=== PATIENT | female | born 2000 | race Caucasian/White ===

== ENCOUNTER 2023-01-19 20:09 | Observation (INO) ==
[2023-01-19 20:46] LABS: Basophils # (auto) 0.08 K/uL (0.00-0.20); Basophils % (auto) 0.9 %; Eosinophils # (auto) 0.31 K/uL (0.00-0.50); Eosinophils % (auto) 3.5 %; Hematocrit (blood only) 36.2 % (37.0-47.0); Hemoglobin 12.2 g/dl (12.0-16.0); Immature Granulocytes # (auto) 0.02 K/uL (0.01-0.20); Immature Granulocytes % (auto) 0.2 %; Lymphocytes # (auto) 2.84 K/uL (1.20-3.40); Lymphocytes % (auto) 32.1 %; Mean Corpuscular Hemoglobin 30.4 pg (25.0-34.0); Mean Corpuscular Hgb Conc 33.7 g/dL (32.0-36.0); Mean Corpuscular Volume 90.3 fL (80.0-100.0); Mean Platelet Volume 9.7 fL (9.4-12.4); Monocytes % (auto) 12.4 %; Neutrophils # (auto) 4.49 K/uL (1.40-6.50); Neutrophils % (auto) 50.9 %; Platelet Count 335 K/uL (130-400); RDW Coefficient of Variation 12.5 % (11.5-14.5); RDW Standard Deviation 41.4 fL (36.4-46.3); Red Blood Count 4.01 M/uL (4.20-5.40); White Blood Count 8.84 K/ul (4.8-10.8)
[2023-01-19 21:03] LABS: Albumin Globulin Ratio 1.7 (0.9-2); Albumin Level 4.3 gm/dl (3.4-5.0); BUN Creatinine Ratio 14.5 (10-20); Bilirubin,Total 0.2 mg/dl (0.2-1.0); Calcium 9.2 mg/dl (8.6-10.3); Creatinine Clr Calc Pharmacy 104.9 ml/min; Est GFR (African American) 142.2 ml/min; Est GFR (Non-African American) 122.7 ml/min; Globulin 2.5 gm/dl (2.5-4.0); Potassium 3.9 mmol/L (3.5-5.1); Total Protein 6.8 gm/dl (6.0-8.3)
[2023-01-19] MEDS ORDERED: AMPICILLIN/SULBACTAM SOD 3,000 MG in SODIUM CHLOR 0.9% MINI-B 100 ML IV STA (23:45)
[2023-01-19] MEDS ORDERED: OPTIRAY 320 500ml IV ONE (23:54)
--- NOTE | 2023-01-20 01:57 | CT Scan Report ---
Exam(s): CT FACIAL With Contrast IV Amt: 84 ML OPTIRAY 320 EXAM: CT Head and Maxillofacial With Intravenous Contrast CLINICAL HISTORY: Reason for exam: left facial swelling. TECHNIQUE: Axial computed tomography images of the head/brain and face with intravenous contrast. CTDI is 7.19 mGy and DLP is 149.76 mGy-cm. Automated exposure control was utilized for the study. A dose lowering technique was utilized adhering to the principles of ALARA. CONTRAST: Patient received 84 ML OPTIRAY 320 of IV contrast COMPARISON: No relevant prior studies available. FINDINGS: Brain: Unremarkable. No hemorrhage. No edema. Normal enhancement. Ventricles: Unremarkable. No ventriculomegaly. Bones/joints: Dental caries with. Periapical lucencies about tooth #19, 23 and 24 concerning for periapical abscesses with periosteal abscess about the lateral 16.1 x 12.9 x 7.4 mm. No acute fracture. Incomplete fusion of the posterior ring of C1. Soft tissues: Prominent cervical lymph nodes. Right thyroid nodule. Sinuses: Chronic obstructive left sphenoid sinusitis. No acute sinusitis. Mastoid air cells: Unremarkable as visualized. No mastoid effusion. Orbits: Unremarkable as visualized. IMPRESSION: Dental caries with periapical lucencies about tooth #19, 23 and 24 concerning for periapical abscesses with a periosteal abscess about the lateral left mandible measuring 16.1 x 12.9 x 7.4 mm. Prominent cervical lymph nodes. Recommend dental consult. Communications: Verify Receipt Electronically signed by: Arabella Hinojosa MD 01/20/23 01:56 AM
--- NOTE | 2023-01-20 03:21 | History & Physical Report ---
Date of Service January 20, 2023 Assessment & Plan (1) Periapical abscess: Plan: 22yo female presenting with pain and swelling left mandible. She has been on Clindamycin for a dental abscess which improved initially but has since worsened. She is afebrile and non-toxic. She has an appointment with a dentist in 5-6 weeks -Observation to medical -Continue antibiotics - Unasyn 3gm IV q 6 -Tylenol as needed -Zofran as needed -LR at 80mL/hr x 2L -Will keep NPO for possible OR in AM -OMFS consultation appreciated History of Present Illness Chief Complaint: left mandibular abscess Primary Care Provider: Suzy Rubio is a 22yo female with no significant past medical or surgical history presenting to [facility] with persistent pain and swelling of the left mandibular jaw. Patient developed a tooth abscess one week ago. She was seen in Urgent Care and was prescribed Clindamycin which she has been taking without difficulty. She reports that her symptoms initially improved but over the last two days she has had increased pain and swelling. She denies fever. No SOB or stridor. No pain or difficulty with swallowing. She is able to open her mouth without difficulty. Otherwise, no chest pain, palpitations, cough, SOB, nausea, vomiting, diarrhea. No additional complaints at this time. In the ER she is afebrile, HD stable, NAD ER Course: Unasyn Allergies Allergy/AdvReac Type Severity Reaction Status Date / Time No Known Allergies Allergy Verified 01/20/23 00:15 Home Medications Medication Instructions Recorded Confirmed Type clindamycin HCl 150 mg capsule 150 mg PO QID 01/20/23 01/20/23 History Past Med/Surg History Medical History (Updated 01/20/23 @ 03:19 by Josefina Griffin DO) GERD (gastroesophageal reflux disease) Surgical History (Updated 01/20/23 @ 03:17 by Josefina Griffin DO) History of appendectomy Family History Other Family history non-contributory Social History Smoking Status: Current every day smoker Tobacco Type: Cigarettes Preferred Language: Salvadorean Feels Safe at Home: Yes Review of Systems Review of Systems: All systems reviewed & are unremarkable except as noted in HPI & below Physical Exam Physical Exam: General: patient resting comfortably, NAD, non-toxic in appearance, AA&O x 4 Skin: warm, dry, intact, no rashes or lesions HEENT: NC/AT, PERRL, EOMI, anicteric sclera, conjunctiva without injection, external ear normal to inspection and nontender, nares patent, moist mucus membranes, neck supple, trachea midline, no LAD, no thyromegaly, no JVD warmth, redness and swelling of left lower jaw. Poor dentition Heart: +S1/S2, regular, no m/r/g Lungs: equal air entry bilaterally, no rales/rhonchi/wheezes Abd: +BS, soft, NT/ND, no masses/organomegaly/ascites Ext: warm, 2+ pulses in UE/LE bilaterally, no clubbing/cyanosis or edema Neuro: nonfocal, patient AA&O x 4, speech intact, no facial droop, moving all extremities on command with equal strength 5/5 Results & Data Results & Data Vital Signs (Past 12 Hours) Vital Signs Temp Pulse Resp BP Pulse Ox O2 Del Method 01/20/23 02:00 98 Room Air 01/19/23 20:24 36.5 C 95 H 18 124/77 100 Room Air Laboratory Results Laboratory Results WBC 8.84 K/ul (4.8-10.8) 01/19/23 20: RBC 4.01 M/uL (4.20-5.40) L 01/19/23 20: Hgb 12.2 g/dl (12.0-16.0) 01/19/23 20: Hct 36.2 % (37.0-47.0) L 01/19/23 20: MCV 90.3 fL (80.0-100.0) 01/19/23 20: MCH 30.4 pg (25.0-34.0) 01/19/23 20: MCHC 33.7 g/dL (32.0-36.0) 01/19/23 20: RDW Std Deviation 41.4 fL (36.4-46.3) 01/19/23 20: RDW Coeff of Maddie 12.5 % (11.5-14.5) 01/19/23 20:28 Plt Count 335 K/uL (130-400) 01/19/23 20:28 MPV 9.7 fL (9.4-12.4) 01/19/23 20: Immature Gran % (Auto) 0.2 % 01/19/23 20: Neut % (Auto) 50.9 % 01/19/23 20: Lymph % (Auto) 32.1 % 01/19/23 20: Lumpkin % (Auto) 12.4 % 01/19/23 20: Eos % (Auto) 3.5 % 01/19/23 20:28 Baso % (Auto) 0.9 % 01/19/23 20: Neut # (Auto) 4.49 K/uL (1.40-6.50) 01/19/23 20: Lymph # (Auto) 2.84 K/uL (1.20-3.40) 01/19/23 20: Lumpkin # (Auto) 1.10 K/uL (0.11-0.59) H 01/19/23 20: Eos # (Auto) 0.31 K/uL (0.00-0.50) 01/19/23 20: Baso # (Auto) 0.08 K/uL (0.00-0.20) 01/19/23 20: Immature Gran # (Auto) 0.02 K/uL (0.01-0.20) 01/19/23 20:28 Sodium 138 mmol/L (136-145) 01/19/23 20: Potassium 3.9 mmol/L (3.5-5.1) 01/19/23 20: Chloride 102 mmol/L (98-107) 01/19/23 20:28 Carbon Dioxide 32 mmol/L (21-32) 01/19/23 20:28 Anion Gap 4 (3-11) 01/19/23 20:28 BUN 10 mg/dl (6-23) 01/19/23 20: Creatinine 0.69 mg/dl (0.6-1.2) 01/19/23 20: Est Cr Clr Drug Dosing 104.9 ml/min 01/19/23 20:28 Est GFR ( Amer) 142.2 ml/min 01/19/23 20:28 Est GFR (Non-Af Amer) 122.7 ml/min 01/19/23 20:28 BUN/Creatinine Ratio 14.5 (10-20) 01/19/23 20:28 Glucose 99 mg/dl (70-99(Fasting)) 01/19/23 20:28 Calcium 9.2 mg/dl (8.6-10.3) 01/19/23 20:28 Total Bilirubin 0.2 mg/dl (0.2-1.0) 01/19/23 20:28 AST 21 U/L (13-39) 01/19/23 20:28 ALT 13 U/L (7-52) 01/19/23 20:28 Alkaline Phosphatase 71 U/L (34-104) 01/19/23 20:28 Total Protein 6.8 gm/dl (6.0-8.3) 01/19/23 20:28 Albumin 4.3 gm/dl (3.4-5.0) 01/19/23 20:28 Globulin 2.5 gm/dl (2.5-4.0) 01/19/23 20:28 Albumin/Globulin Ratio 1.7 (0.9-2) 01/19/23 20:[address] 01/19/23 23:26 CR Exam(s): CT FACIAL With Contrast IV Amt: 84 ML OPTIRAY 320 EXAM: CT Head and Maxillofacial With Intravenous Contrast CLINICAL HISTORY: Reason for exam: left facial swelling. TECHNIQUE: Axial computed tomography images of the head/brain and face with intravenous contrast. CTDI is 7.19 mGy and DLP is 149.76 mGy-cm. Automated exposure control was utilized for the study. A dose lowering technique was utilized adhering to the principles of ALARA. CONTRAST: Patient received 84 ML OPTIRAY 320 of IV contrast COMPARISON: No relevant prior studies available. FINDINGS: Brain: Unremarkable. No hemorrhage. No edema. Normal enhancement. Ventricles: Unremarkable. No ventriculomegaly. Bones/joints: Dental caries with. Periapical lucencies about tooth #19, 23 and 24 concerning for periapical abscesses with periosteal abscess about the lateral 16.1 x 12.9 x 7.4 mm. No acute fracture. Incomplete fusion of the posterior ring of C1. Soft tissues: Prominent cervical lymph nodes. Right thyroid nodule. Sinuses: Chronic obstructive left sphenoid sinusitis. No acute sinusitis. Mastoid air cells: Unremarkable as visualized. No mastoid effusion. Orbits: Unremarkable as visualized. IMPRESSION: Dental caries with periapical lucencies about tooth #19, 23 and 24 concerning for periapical abscesses with a periosteal abscess about the lateral left mandible measuring 16.1 x 12.9 x 7.4 mm. Prominent cervical lymph nodes. Recommend dental consult. Communications: Verify Receipt Electronically signed by: Arabella Hinojosa MD 01/20/23 01:56 AM PG Care Time/CCT Total # of Minutes Spent Total Time Spent with Patient: Total time spent is greater than 50% in coordination of care (as documented) at patient's floor/unit and/or counseling patient: Coding Level of Care Code 20878 INT INP/OBS CARE 2/55MIN Diagnoses Periapical abscess K04.7
[2023-01-20] MEDS ORDERED: ONDANSETRON INJ 2 MG/ML 2 ML VIAL IV PRN ×2 (03:54→13:47)
[2023-01-20] MEDS ORDERED: LACTATED RINGER'S 1,000 ML IV SCH ×2 (03:54→13:45)
[2023-01-20] MEDS ORDERED: KETOROLAC TROMETHAMINE 15 MG/ML VIAL IV PRN (03:54)
[2023-01-20] MEDS ORDERED: ACETAMINOPHEN 325 MG TAB PO PRN (03:54)
--- NOTE | 2023-01-20 05:31 | Emergency Department Note ---
History of Present Illness General Chief complaint: Dental/Oral Stated complaint: ABSESS Time Seen by Provider: 01/19/23 23:37 History of Present Illness Maximum Pain Intensity: 6 This is a 22-year-old female presenting to the emergency department for evaluation of left-sided facial swelling and pain. Patient believes this may be coming from a dental source and reached out to her dentist. She was not able to be evaluated by her dentist, but made an appointment for [address] Patient went to an urgent care clinic and was started on clindamycin. She is on day 5 of clindamycin, but had worsening pain and swelling tonight. She rates her discomfort a 6/10. She has notable swelling to the left side of the face. Home Medications Medication Instructions Recorded Confirmed Type clindamycin HCl 150 mg capsule 150 mg PO QID 01/20/23 01/20/23 History Allergies Allergy/AdvReac Type Severity Reaction Status Date / Time No Known Allergies Allergy Verified 01/20/23 00:15 Past Med/Surg History Medical History GERD (gastroesophageal reflux disease) Surgical History History of appendectomy Family History Other Family history non-contributory Social History Smoking Status: Current every day smoker Tobacco Type: Cigarettes Cigarettes Per Day: Less than half a pack; Hx Alcohol Use: No Hx Substance Use: No Preferred Language: Tajik Communication Ability: Effective Vegetable Washer Required: No Beliefs That Will Affect Care: None Current Living Situation: Parent and Significant Other Feels Safe at Home: Yes Assistive Devices: None Review of Systems A total of 10 systems reviewed and were otherwise negative Physical Exam Vital Signs Vital Signs - 24 hr 01/19/23 20:24 01/20/23 00:09 01/20/23 02:00 Temperature 36.5 C Temperature Source Oral Pulse Rate 95 H Respiratory Rate 18 Respiratory Effort / Characteristics Non-Labored Non-Labored Non-Labored Respiratory Depth Normal Normal Normal Respiratory Pattern Regular Blood Pressure 124/77 Blood Pressure Mean 92 Pulse Oximetry 100 98 Oxygen Delivery Method Room Air Room Air Sepsis Recent Fever Within 48 Hours No Sepsis New/Unexplained Change in Mental Status N/A Sepsis Action Taken by Nursing No Action Required VITALS: Vitals are noted on the nurse's note and reviewed by myself. Vital signs stable. GENERAL: Well-developed, well-nourished, white female, who is in no acute distress and resting comfortably. Patient is cooperative with the examination. HEAD: Normocephalic atraumatic. MOUTH: Mucous membranes moist. Uvula midline and no soft palate involvement. Dentition in fair repair. There is significant and notable edema to the left side jaw at the angle of the mandible. NECK: Supple without nuchal rigidity. No lymphadenopathy. No thyromegaly. Cervical spine is nontender. HEART: Regular rate and rhythm without murmurs gallops or rubs. LUNGS: Clear to auscultation bilaterally without wheezes, rales or rhonchi. No retractions or accessory muscle use. ABDOMEN: Positive normal bowel sounds x 4. Soft, nontender, without masses or organomegaly. No guarding or rebound tenderness. Course Administered Medications Lactated Ringer's (Lr) 1,000 mls @ 80 mls/hr IV .[id number] [facility] Stop: 01/21/23 04:53 Last Admin: 01/20/23 04:54 Dose: 80 mls/hr Documented By: ERON Discontinued Medications Ampicillin Sodium/Sulbactam Sodium 3,000 mg/ Sodium Chloride 100 mls @ 200 mls/hr IV NOW STA Stop: 01/20/23 00:14 Last Infusion: 01/20/23 00:55 Dose: Infused Documented By: Admin: 01/20/23 00:09 Dose: 200 mls/hr Documented By: JEAN CLAUDE Ioversol (Optiray 320 500ml) 100 ml IV ONCE ONE Stop: 01/19/23 23:55 Last Admin: 01/19/23 23:55 Dose: 84 ml Documented By: THA Medical Decision Making Differential Diagnosis Differential diagnosis includes: Etiologies such as Pancho's, cellulitis, abscess, osteomyelitis, MRSA infection, DVT, necrotizing fasciitis, dermatitis, drug eruption, as well as others were entertained Laboratory Data 01/19/23 20:28 01/19/23 20:28 Lab Results 01/19/23 Range/Units 20:28 WBC 8.84 (4.8-10.8) K/ul RBC 4.01 L (4.20-5.40) M/uL Hgb 12.2 (12.0-16.0) g/dl Hct 36.2 L (37.0-47.0) % MCV 90.3 (80.0-100.0) fL MCH 30.4 (25.0-34.0) pg MCHC 33.7 (32.0-36.0) g/dL RDW Std Deviation 41.4 (36.4-46.3) fL RDW Coeff of Maddie 12.5 (11.5-14.5) % Plt Count 335 (130-400) K/uL MPV 9.7 (9.4-12.4) fL Immature Gran % (Auto) 0.2 % Neut % (Auto) 50.9 % Lymph % (Auto) 32.1 % Kendall % (Auto) 12.4 % Eos % (Auto) 3.5 % Baso % (Auto) 0.9 % Neut # (Auto) 4.49 (1.40-6.50) K/uL Lymph # (Auto) 2.84 (1.20-3.40) K/uL Kendall # (Auto) 1.10 H (0.11-0.59) K/uL Eos # (Auto) 0.31 (0.00-0.50) K/uL Baso # (Auto) 0.08 (0.00-0.20) K/uL Immature Gran # (Auto) 0.02 (0.01-0.20) K/uL Sodium 138 (136-145) mmol/L Potassium 3.9 (3.5-5.1) mmol/L Chloride 102 (98-107) mmol/L Carbon Dioxide 32 (21-32) mmol/L Anion Gap 4 (3-11) BUN 10 (6-23) mg/dl Creatinine 0.69 (0.6-1.2) mg/dl Est Cr Clr Drug Dosing 104.9 ml/min Est GFR ( Amer) 142.2 ml/min Est GFR (Non-Af Amer) 122.7 ml/min BUN/Creatinine Ratio 14.5 (10-20) Glucose 99 (70-99(Fasting)) mg/dl Calcium 9.2 (8.6-10.3) mg/dl Total Bilirubin 0.2 (0.2-1.0) mg/dl AST 21 (13-39) U/L ALT 13 (7-52) U/L Alkaline Phosphatase 71 (34-104) U/L Total Protein 6.8 (6.0-8.3) gm/dl Albumin 4.3 (3.4-5.0) gm/dl Globulin 2.5 (2.5-4.0) gm/dl Albumin/Globulin Ratio 1.7 (0.9-2) Imaging Data Radiologist's Impression: Face CT 01/19/23 23:26 CR Exam(s): CT FACIAL With Contrast IV Amt: 84 ML OPTIRAY 320 EXAM: CT Head and Maxillofacial With Intravenous Contrast CLINICAL HISTORY: Reason for exam: left facial swelling. TECHNIQUE: Axial computed tomography images of the head/brain and face with intravenous contrast. CTDI is 7.19 mGy and DLP is 149.76 mGy-cm. Automated exposure control was utilized for the study. A dose lowering technique was utilized adhering to the principles of ALARA. CONTRAST: Patient received 84 ML OPTIRAY 320 of IV contrast COMPARISON: No relevant prior studies available. FINDINGS: Brain: Unremarkable. No hemorrhage. No edema. Normal enhancement. Ventricles: Unremarkable. No ventriculomegaly. Bones/joints: Dental caries with. Periapical lucencies about tooth #19, 23 and 24 concerning for periapical abscesses with periosteal abscess about the lateral 16.1 x 12.9 x 7.4 mm. No acute fracture. Incomplete fusion of the posterior ring of C1. Soft tissues: Prominent cervical lymph nodes. Right thyroid nodule. Sinuses: Chronic obstructive left sphenoid sinusitis. No acute sinusitis. Mastoid air cells: Unremarkable as visualized. No mastoid effusion. Orbits: Unremarkable as visualized. IMPRESSION: Dental caries with periapical lucencies about tooth #19, 23 and 24 concerning for periapical abscesses with a periosteal abscess about the lateral left mandible measuring 16.1 x 12.9 x 7.4 mm. Prominent cervical lymph nodes. Recommend dental consult. Communications: Verify Receipt Electronically signed by: Arabella Hinojosa MD 01/20/23 01:56 AM MDM Narrative Physical exam and history were performed. Nursing notes, EMR, and Medication List were personally reviewed. No social concerns were identified as barriers to patients care. Patient appears to have pain and swelling to the left side of her face. She is on clindamycin for possible dental source. Her airway is patent and she does not have tenderness underneath the tongue. IV access was established and labs were obtained. The patient was given IV Toradol and Unasyn. She was sent to CT scan for imaging of her face. Patient's blood work is as above and was reviewed. She does not have a significantly elevated white blood cell count, gross anemia, bandemia, or significant electrolyte imbalance. Transaminases are not diagnostic. CT scan was reviewed by myself and radiology and does show a large abscess as described above. I did reach out to the oral maxillofacial surgeon, Dr. Cao, who recommends keeping the patient n.p.o. He will evaluate her for possible OR drainage of the abscess. Case was discussed with the on-call hospitalist team. Please see the hospitalist dictation for further patient course, plan, and disposition. The chart was completed utilizing [employer] Speech Voice Recognition Software. Grammatical errors, random word insertions, pronoun errors, and incomplete sentences are an occasional consequence of this system due to software limitations, ambient noise, and hardware issues. Any formal questions or concerns about the content, text, or information contained within the body of this dictation should be directly addressed to the provider for clarification. . Impression & Plan Abscess of mandible Discharge Plan Visit Data Chief Complaint: Dental/Oral Stated Complaint: ABSESS ED Provider: June Dennis ED Midlevel Provider: Fernando Jarrett Discharge Problem: Abscess of mandible Patient Disposition: Admitted As Inpatient Discharge Instructions Interventions: ED Discharge Assessment Last Done: 01/20/23 03:47
[2023-01-20] MEDS: AMPICILLIN/SULBACTAM SOD 3,000 MG in SODIUM CHLOR 0.9% MINI-B 100 ML IV SCH ×3 (06:26→17:12)
--- NOTE | 2023-01-20 09:48 | Oral/Maxillofacial Consult ---
Date of Consultation January 20, 2023 History of Present Illness Attending Physician: Grupo Fournier History of Present Illness Oral Maxillofacial Surgery Exam Present Complaint: I have pain/swelling/drainage from my infected lower left molar teeth. Symptoms have been ongoing for a while. She thinks the tooth cracked and food get stuck inbetween 18-19 Was placed on Clindamycin but getting worse and now facial swelling. Blanca Rubio is a 22yo female with no significant past medical or surgical history presenting to [facility] with persistent pain and swelling of the left man dibular jaw. Patient developed a tooth abscess one week ago. She was seen in Urgent Care and was prescribed Clindamycin which she has been taking without difficulty. She reports that her symptoms initially improved but over the last two days she has had increased pain and swelling. She denies fever. No SOB or stridor. No pain or difficulty with swallowing. She is able to open her mouth without difficulty. Otherwise, no chest pain, palpitations, cough, SOB, nausea, vomiting, diarrhea. No additional complaints at this time. Buccal vestibule and submandibular are swollen and very painful. Oral Exam: Finding- Left side swollen face, submandibular area and tender gingival tissue with deep pocket formation. Teeth # 18,19 and failed endo # 31 abscessed and removal is clinical indicated. Imaging: CT scan The CT was reviewed by Dr Cao, there were no abnormal findings other then the impacted/malposed wisdom teeth. CT Head and Maxillofacial With Intravenous Contrast CLINICAL HISTORY: Reason for exam: left facial swelling. FINDINGS: Brain: Unremarkable. No hemorrhage. No edema. Normal enhancement. Ventricles: Unremarkable. No ventriculomegaly. Bones/joints: Dental caries with. Periapical lucencies about tooth #18 and 19 concerning for periapical abscesses with periosteal abscess about the lateral 16.1 x 12.9 x 7.4 mm. No acute fracture. Incomplete fusion of the posterior ring of C1. Soft tissues: Prominent cervical lymph nodes. Right thyroid nodule. Sinuses: Chronic obstructive left sphenoid sinusitis. No acute sinusitis. Mastoid air cells: Unremarkable as visualized. No mastoid effusion. Orbits: Unremarkable as visualized. There is a periapical radiolucency under 25-26--no pain or clinical swelling--ref to dentist for consideration of root canal IMPRESSION: Dental caries with periapical lucencies about tooth #19, 23 and 24 concerning for periapical abscesses with a periosteal abscess about the lateral left mandible measuring 16.1 x 12.9 x 7.4 mm. Prominent cervical lymph nodes. Recommend dental consult. The TMJ are well positioned and no evidence of bony pathology. The sinus, supporting bone all WNL Evaluated the nerve/sinus relationship to the roots of the teeth. The following teeth require extraction with the I&D 18,19 and 31 Soft tissue: The floor of the mouth, tongue, hard/soft palate, posterior pharyngeal area all with in normal limits, no pathology or abnormal findings noted. Gingival swelling lower left mucobuccal fold submandibular space Oral Care: Overall oral care is fair Occlusion: Class I TMJ exam: No pop, clicking, pain, good ROM, No history of TMJ injury or dysfunction Periodontal exam: Inflamed gingival tissue with early evidence of periodontal pathology. Head/Neck exam: Left submandibular and cheek swollen with large left side cervical lymph nodes, Neck is supple, FROM, Able to extend and flex neck with some difficulty, no masses, no abnormalities, no airway issues, no evidence of sleep apnea other the than the swelling from the current infection Treatment Plan: Need to plan I&D with submandibular, submandibular and vestibular space left posterior with extraction of 18,19,31 Set up with general anesthesia in hospital due to complexity of the procedure I reviewed the treatment plan and consent with the patient. Understanding was expressed. Time was given for questions regarding the surgery, risks and post op care. Discussed alternative to treatment--procedure as planned, Do not do surgery The following teeth are decayed and fractured and removal is indicated XIOMARA: I&D with submandibular, submandibular and vestibular space left posterior with extraction of 18,19,31 Suggest--evaluation of # 25-26 by her dentist for development of a treatment plan. Risks discussed: Bleeding,Pain,swelling,infection, dry socket, delayed healing, nerve injury to face,lips,tongue,chin area which could be permanent (rare). TMJ, jaw stiffness, change in bite (rare), ear pain (referred). Sinus problems like fistula or infection. Need to leave a small root fragment in place to avoid injury to nerve or sinus. Relationship of teeth to nerve/sinus and risk of jaw fracture-rare Suggest--evaluation of # 25-26 by her dentist for development of a treatment plan. Home care reviewed: tooth brushing, rinsing, follow up care with Dr Cao. diet=[id number] dental. Discussed activity level, driving/work while on Rx pain Meds. Surgery to be set up today Patient is NPO Consent signed We will change to Augmentin once discharged Allergies Allergy/AdvReac Type Severity Reaction Status Date / Time No Known Allergies Allergy Verified 01/20/23 00:15 Home Medications Medication Instructions Recorded Confirmed Type clindamycin HCl 150 mg capsule 150 mg PO QID 01/20/23 01/20/23 History Patient History Medical History GERD (gastroesophageal reflux disease) Surgical History History of appendectomy Family History Other Family history non-contributory Social History Smoking Status: Current every day smoker Tobacco Type: Cigarettes Cigarettes Per Day: Less than half a pack; Hx Alcohol Use: No Hx Substance Use: No Preferred Language: Kiswahili Communication Ability: Effective Pre School Manager Required: No Beliefs That Will Affect Care: None Current Living Situation: Parent and Significant Other Feels Safe at Home: Yes Assistive Devices: None Results & Data Vital Signs (Past 12 Hours) Vital Signs Temp Pulse Pulse Resp BP BP BP 01/20/23 07:30 36.6 C 89 17 119/81 01/20/23 03:47 90 16 116/75 01/20/23 03:40 36.4 C 87 16 109/72 01/20/23 02:00 Pulse Ox O2 Del Method 01/20/23 07:30 100 Room Air 01/20/23 03:47 98 Room Air 01/20/23 03:40 100 Room Air 01/20/23 02:00 98 Room Air PG Care Time/CCT Total # of Minutes Spent Total Time Spent with Patient: Total time spent is greater than 50% in coordination of care (as documented) at patient's floor/unit and/or counseling patient: Coding Level of Care Code 36095 IN/OBS CONSULT LVL 2,35M
[2023-01-20] MEDS ORDERED: fentaNYL citrate PF 100 MCG/2 ML VIAL ONE (13:17)
[2023-01-20] MEDS ORDERED: PROPOFOL IV EMULSION 10 MG/ML 20 ML VIAL IV ONE (13:17)
[2023-01-20] MEDS ORDERED: DEXAMETHASONE SOD INJ 4 MG/ML VIAL ONE (13:17)
[2023-01-20] MEDS ORDERED: MIDAZOLAM HCL 1 MG/ML 2ML VIAL ONE (13:17)
[2023-01-20] MEDS ORDERED: LIDOCAINE 2% 2 ML VIAL/AMP(20MG/ML) INFIL ONE (13:17)
[2023-01-20] MEDS ORDERED: ONDANSETRON INJ 2 MG/ML 2 ML VIAL ONE (13:17)
[2023-01-20] MEDS ORDERED: BUPIVACAINE/EPINEPHRINE 0.5% 1:200,000 1.8 ML CARP ONE (13:19)
[2023-01-20] MEDS ORDERED: CHLORHEXIDINE GLUCONATE 0.12% 480 ML MT ONE (13:19)
--- NOTE | 2023-01-20 13:27 | History & Physical Bridge Note ---
Date of Service January 20, 2023 History & Physical Bridge Note I have examined the patient, reviewed the History & Physical and in the interval since the performance of the History & Physical I have noted the following changes of clinical significance: no changes noted. OK for I&D with extractions of involved teeth ..31
--- NOTE | 2023-01-20 13:36 | Anesthesiology Consultation ---
Date of Service January 20, 2023 Assessment & Plan Chart Review Chart Review: Acceptable Risk for Surgery and Patient NOT seen in Pre Admission Testing Consults Requested none ASA ASA2 Proposed Anesthesia Anesthesia Type: General History Surgery Operation Date: 01/20/23 09:20 Proposed Procedures p Incision and Drainage, Extraction of 3 Teeth, 18, 19, 31 - Bennie Cao, DMD Height/Weight Height: 5 ft 3 in Weight: 56.7 kg Allergies Allergy/AdvReac Type Severity Reaction Status Date / Time No Known Allergies Allergy Verified 01/20/23 00:15 Medications Home Medications Medication Instructions Recorded Confirmed Last Taken clindamycin HCl 150 mg capsule 150 mg PO QID 01/20/23 01/20/23 01/19/23 Active Medications Generic Name Dose Route Start Last Admin Trade Name Freq PRN Reason Stop Dose Admin Ampicillin Sodium/Sulbactam 100 mls @ 100 mls/hr 01/20/23 06:00 01/20/23 12:09 Sodium 3,000 mg/ Sodium IV 01/30/23 05:59 100 mls/hr Chloride Q6H RIMA Administration Lactated Ringer's 1,000 mls @ 15 mls/hr 01/20/23 03:54 01/20/23 04:54 Lr IV 01/22/23 03:53 80 mls/hr .Q24H RIMA Administration Lactated Ringer's 1,000 mls @ 15 mls/hr 01/20/23 13:45 01/20/23 13:36 Lr IV 02/19/23 13:44 15 mls/hr .Q24H RIMA Administration Past Medical History Medical History GERD (gastroesophageal reflux disease) + cigarette smoker Exercise / Class Metabolic Activity II 4-5 Yardwork/Stairs/Walk up hill Past Family History Family History Other Family history non-contributory Past Surgical History Surgical History History of appendectomy Past Anesthesia History No Hx of Anesthesia Complications and No Family Hx of Anesthesia Complications History of PONV No Hx of PONV and No Hx of Motion Sickness Social History Smoking Status: Current every day smoker Smoking cigarettes per day: Less than half a pack Hx Alcohol Use: No Hx Substance Use: No Physical Exam Vital Signs Last Vital Signs Temp 36.7 C 01/20/23 13:29 Pulse 93 H 01/20/23 13:29 Resp 20 01/20/23 13:29 BP 108/66 01/20/23 13:29 Pulse Ox 97 01/20/23 13:29 O2 Del Method Room Air 01/20/23 13:29 Testing Laboratory Results 01/19/23 20:28 01/19/23 20:28
[2023-01-20] MEDS ORDERED: ATROPINE SULFATE 0.1 MG/ML 10ML SYR IV PRN (13:47)
[2023-01-20] MEDS ORDERED: NALOXONE HCL 0.4 MG/1 ML VIAL/CARP IV PRN (13:47)
[2023-01-20] MEDS ORDERED: fentaNYL citrate PF 100 MCG/2 ML VIAL IV PRN (13:47)
[2023-01-20] MEDS ORDERED: FLUMAZENIL 0.1 MG/1 ML 10 ML VIAL IV PRN (13:47)
[2023-01-20] MEDS ORDERED: PROMETHAZINE HCL 12.5 MG in SODIUM CHLORIDE 0.9% 50 ML IV PRN (13:47)
[2023-01-20] MEDS ORDERED: ePHEDrine sulfate 50 MG/ML AMP IV PRN (13:47)
--- NOTE | 2023-01-20 14:00 | Hospitalist Progress Note ---
Date of Service January 20, 2023 Assessment & Plan (1) Periapical abscess: Plan: 22yo female presenting with pain and swelling left mandible. She has been on Clindamycin for a dental abscess which improved initially but has since worsened. She is afebrile and non-toxic. She has an appointment with a dentist in 5-6 weeks -Continue antibiotics - Unasyn 3gm IV q 6 -Tylenol as needed -Zofran as needed -LR at 80mL/hr x 2L -OMFS consultation - I&D with submandibular, submandibular and vestibular space left posterior with extraction of 18,19,[address] Cao 01/20 Plan continued stay, possible d/c tomorrow pending how procedure goes Admission and Anticipated Discharge Date Admission Date: January 20, 2023 Subjective Patient seen resting in bed. Reports that her pain has been well controlled. Denies fevers or chills. Denies CP or SOB. Aware plan is to remove 5 teeth today and I&D abcess. Review of Systems Review of Systems: All systems reviewed & are unremarkable except as noted in Subjective Physical Exam Physical Exam: General: WN/WD, NAD, VS as above HEENT - left sided jaw swelling, no erythema. tender to palpation. Fair dentition. Resp: normal respiratory effort, lungs clear to auscultation CV: RRR, no murmur, no edema Abd: normal bowel sounds, non tender, no hepatosplenomegaly Extremities: Moves all extremities, no edema Neuro: A&O x3, Skin: intact, no lesions noted Results & Data Results & Data Vital Signs (Past 12 Hours) Vital Signs Temp Pulse Pulse Pulse Resp BP BP 01/20/23 13:29 36.7 C 93 H 20 108/66 01/20/23 07:30 36.6 C 89 17 01/20/23 03:47 90 16 116/75 01/20/23 03:40 36.4 C 87 16 109/72 01/20/23 02:00 BP Pulse Ox O2 Del Method 01/20/23 13:29 97 Room Air 01/20/23 07:30 119/81 100 Room Air 01/20/23 03:47 98 Room Air 01/20/23 03:40 100 Room Air 01/20/23 02:00 98 Room Air PG Care Time/CCT Total # of Minutes Spent Total Time Spent with Patient: Total time spent is greater than 50% in coordination of care (as documented) at patient's floor/unit and/or counseling patient: Coding Level of Care Code None Diagnoses Periapical abscess K04.7
[2023-01-20] MEDS ORDERED: SUGAMMADEX SODIUM 200 MG/2 ML VIAL IV ONE (14:16)
[2023-01-20] MEDS ORDERED: ESMOLOL HCL INJ 10 MG/ML 10ML VIAL IV ONE (14:16)
[2023-01-20] MEDS ORDERED: ROCURONIUM BROMIDE 10 MG/ML 5 ML VIAL IV ONE (14:16)
--- NOTE | 2023-01-20 14:51 | Operative Report ---
PG Post Operative Report Pre & Post Diagnosis Operation Date: 01/20/23 09:20 Pre-Op Diagnosis: Dental Carries with Abscesses Post-Op Diagnosis: Dental Carries with Abscesses I identified the patient and participated in the time-out.: Yes Procedure Operation Date: 01/20/23 09:20 Actual Procedures p Incision and Drainage, Extraction of 3 Teeth, 18, 19, 31(Left) - Bennie Cao DMD Surgeon Bennie Cao DMD Fats And Oils Loader none Estimated Blood Loss 3 Findings Consistent with Post-Op Diagnosis facial swelling from abscessed fractured and carious teeth Specimens I&D Drains none Complications none Indications acute facial abscess left submandibular site Description of Procedure Actual Procedures p Incision and Drainage Left Submandibular Abscess; Removal of Tooth #18,19 and 31 (Not Applicable) - Bennie Cao DMD ICD 10 K12.2 Facial abscess left submandibular area K04.6 abscessed teeth Procedure: CPT 83434 intraoral I&D or submandibular and vestibular space left facial abscess. D7140 x 3 for teeth 18,19,31 Once cleared for surgery general anesthesia was achieved, the eyes were protected by the anesthesia dept criteria. A time out was take for patient ID, antibiotics, equipment and position verification once all agreed the procedure began. Fire Safety precautions used Local anesthesia using Marcaine with a vasoconstrictor ( 1.8 ml per site) given into left/right inferior alveolar nerve A throat pack was placed after the oral cavity was irrigated with saline and peridex. Once a surgical level of anesthesia was obtained and the local anesthesia was given time for the blocks the surgery was started. I turned my attention to the infection which was located in the left vestibular space and submandibular area. The tongue was elevated and there was also swelling associated with tooth # 18,19 and roots # 31( see CT scan report) Incision and Drainage left infected facial spaces ICD 10 K12.2 Facial abscess left submandibular area K04.6 abscessed teeth Procedure: K12.2 Facial abscess left submandibular area CPT 69217 intraoral I&D or submandibular and vestibular space left facial abscess. Using a 15 blade an incision was made lateral to the alveolar ridge in the vestibular fold. Once the incision was made a lot of pus extruded from the site. This drainage was cultured for anaerobic and aerobic bacteria. A curved hemostat was carefully placed into the infected space along the lateral side of the lower jaw and into the submandibular space. Some further drainage was now allowed to escape. I palpated the cheek and submental area and no further drainage was expressed. The area was irrigated with at least 100 ml of NS solution. I now turned my attention to remove the associated abscessed teeth # 18,19,31. Lower # 18,19 D7140 K04.6 abscessed teeth The full thick Muco-periosteal flap was made on the facial aspect from # the retromolar pad anterior to tooth # 21. The flap was reflected to expose the the subperiosteal space the bone adjacent to the teeth. The rongeur was used to remove bone, the teeth were removed with a 301 elevator and a dental forceps. The mental nerve was intact, there was a large amount of granulation tissue on the apex and some more pus that was expressed. A 2-0 chromic was used to approximate the sockets but still allow drainage. Lower right # 31 D7140 residual roots K04.6 abscessed teeth This tooth had a root canal in the past. The tooth was completely decayed to the bone with only the 2 roots remaining, the 2 roots were removed with an elevator. A 2-0 chromic was used to approximate the sockets but still allow drainage. I inspected the sites to insure all bleeding was controlled. I removed the throat pack and suctioned the throat. Bilateral gauze pressure dressings were placed. All instrument and sponge count was correct. The patient was allowed to awake from the anesthesia. Once full awake the anesthesia tube was removed and the patient was taken to the recovery room with all vital sign stable. The patient tolerated the surgery very well. I will follow the patient in my office, Rx and instructions will be given upon discharge. I attest to the content of the Intraoperative Record and any orders documented therein. Any exceptions are noted below.
--- NOTE | 2023-01-20 15:18 | Anesthesiology Progress Note ---
Date of Service January 20, 2023 Anesthesia Post Procedure Vital Signs Vital Signs: Temp Pulse Pulse Pulse Resp BP BP 01/20/23 15:15 36.5 C 88 16 107/69 01/20/23 15:05 86 22 105/61 01/20/23 14:55 88 18 104/59 L 01/20/23 14:48 36.7 C 90 16 106/65 01/20/23 13:29 36.7 C 93 H 20 108/66 01/20/23 07:30 36.6 C 89 17 01/20/23 03:47 90 16 116/75 01/20/23 03:40 36.4 C 87 16 109/72 01/20/23 02:00 01/19/23 20:24 36.5 C 95 H 18 124/77 BP Pulse Ox O2 Del Method O2 Flow Rate 01/20/23 15:15 99 Room Air 01/20/23 15:05 100 Room Air 01/20/23 14:55 100 Oxymask 2 01/20/23 14:48 99 Oxymask 4 01/20/23 13:29 97 Room Air 01/20/23 07:30 119/81 100 Room Air 01/20/23 03:47 98 Room Air 01/20/23 03:40 100 Room Air 01/20/23 02:00 98 Room Air 01/19/23 20:24 100 Room Air Transfer of Care Handoff Completed per policy Notes Mental Status: alert / awake / arousable Patient Amnestic to Procedure: Yes Nausea / Vomiting: adequately controlled Pain: adequately controlled Airway Patency, RR, SpO2: stable & adequate BP & HR: stable & adequate Hydration State: stable & adequate Anesthetic Complications: no major complications apparent and Pt Satisfied with anesthetic care
[2023-01-21] MEDS: AMPICILLIN/SULBACTAM SOD 3,000 MG in SODIUM CHLOR 0.9% MINI-B 100 ML IV SCH ×2 (00:12→05:19)
[2023-01-21 07:11] LABS: Hematocrit (blood only) 32.6 % (37.0-47.0); Hemoglobin 11.2 g/dl (12.0-16.0); Mean Corpuscular Hemoglobin 30.2 pg (25.0-34.0); Mean Corpuscular Hgb Conc 34.4 g/dL (32.0-36.0); Mean Corpuscular Volume 87.9 fL (80.0-100.0); Mean Platelet Volume 9.9 fL (9.4-12.4); Platelet Count 332 K/uL (130-400); RDW Coefficient of Variation 12.3 % (11.5-14.5); RDW Standard Deviation 39.5 fL (36.4-46.3); Red Blood Count 3.71 M/uL (4.20-5.40); White Blood Count 11.77 K/ul (4.8-10.8)
[2023-01-21 07:38] LABS: BUN Creatinine Ratio 14.5 (10-20); Creatinine Clr Calc Pharmacy 104.9 ml/min; Est GFR (African American) 142.2 ml/min; Est GFR (Non-African American) 122.7 ml/min; Potassium 3.8 mmol/L (3.5-5.1)
--- NOTE | 2023-01-21 07:56 | Procedure Note ---
Procedure Note Date of Service January 21, 2023 Note OK for discharge this AM Patine needed to stay overnight for IV antibiotics She may be discharged with oral Antibiotics --Augmentin. Inst and follow up reviewed in discharge instructions. Coding
--- NOTE | 2023-01-21 08:51 | Discharge Summary ---
Date of Service January 21, 2023 Admission HPI Per Admitting Provider Blanca Rubio is a 22yo female with no significant past medical or surgical history presenting to [facility] with persistent pain and swelling of the left mandibular jaw. Patient developed a tooth abscess one week ago. She was seen in Urgent Care and was prescribed Clindamycin which she has been taking without difficulty. She reports that her symptoms initially improved but over the last two days she has had increased pain and swelling. She denies fever. No SOB or stridor. No pain or difficulty with swallowing. She is able to open her mouth without difficulty. Otherwise, no chest pain, palpitations, cough, SOB, nausea, vomiting, diarrhea. No additional complaints at this time. In the ER she is afebrile, HD stable, NAD ER Course: Unasyn Principal Diagnosis Tooth abscess x3 Discharge Exam General: WN/WD, NAD, VS as above HEENT: Left sided mandibular swelling decreased, packing in place in mouth Resp: normal respiratory effort, lungs clear to auscultation CV: RRR, no murmur, no edema Abd: normal bowel sounds, non tender, no hepatosplenomegaly Extremities: Moves all extremities, no edema Neuro: A&O x3, Skin: intact, no lesions noted Discharge Data Allergies Allergy/AdvReac Type Severity Reaction Status Date / Time No Known Allergies Allergy Verified 01/20/23 00:15 Consultations 01/20/23 02:53 ED Decision to Admit Stat 01/20/23 03:54 Consult Oromaxillofacial Surgery Routine Procedures Performed Operation Date: 01/20/23 09:20 Actual Procedures p Incision and Drainage, Extraction of 3 Teeth, 18, 19, 31(Left) - Bennie Cao DMD Ordered Studies 01/19/23 23:26 CT facial bones w con Stat Hospital Course (1) Periapical abscess: 22yo female presenting with pain and swelling left mandible. She has been on Clindamycin for a dental abscess which improved initially but has since worsened. She is afebrile and non-toxic. Given Unasyn inpatient --> Augmentin x 10 days at discharge -OM consultation - I&D with submandibular, submandibular and vestibular space left posterior with extraction of 18,19,[address] Cao 01/20 - Vicodin for pain and Zofran for nausea outpatient - Follow up with Dr. Cao Plan Discharge to home with follow up with Dr. Cao Total Time Total Time Spent Total Time Spent (In Minutes): 35 Discharge Plan Discharge Items Patient Disposition: Home - Self-Care Reason For Visit: DENTAL CARIES WITH ABSCESSES Discharge Diagnosis: s/p facial infection not responding to out patient therapy Activity: Resume your previous activity Lifting: Gradually increase as tolerated Bathing: No limitations Exercise/Sports: Gradually increase as tolerated Driving/Machine Use: Resume 1 day after discharge Weightbearing: Full weightbearing Non-emergency contact: Surgeon Call non-emergency contact if: your symptoms worsen, your temperature is above 101.5, your wound has increased redness, your wound has increased drainage and your wound pain has increased Follow-up/Referrals: Bennie Cao DMD [Physician] - 01/30/23 9:00 am Suzy Noble PA-C [Primary Care Provider] - Diet: Regular, Full liquid and Clear liquid Diet Texture: Easy to Chew Addtl Attending Provider Instructions: ADDITIONAL ACTIVITY RECOMMENDATIONS: * [place] teeth after every meal. It is very important to keep your mouth clean to prevent infection. * Starting tonight rinse with the Peridex as directed then 2 x a day * it is very important to keep well hydrated, this prevents fever and possible dry socket pain SPECIAL CARE INSTRUCTIONS: *It is not uncommon that between day 2-4 that your swelling will be at its worst this is very normal, do not be alarmed. * Keep ice on the side of your face for the next 24 to 36 hours. This will help keep the swelling down. * After 36 hours, apply heat (hot water bottle or heating pad) for the next two days, as often as possible. * Tomorrow start rinsing your mouth with 1/2 teaspoon salt in 8 ounces warm water. This rinse should be used every 4-6 hours. * You may experience slight nausea. To prevent this, never take your medication on an empty stomach. If nauseated, take small sips of lopez demetrio until you feel better; then you may start on applesauce and toast. * Some swelling is common. It should gradually decrease within 4-5 days. * A certain amount of bleeding is to be expected. It is often possible to control mild oozing by placing folded gauze over the area and biting down for 30 minutes. If you are unable to control excessive bleeding, call Dr Cao at [phone] * You may experience some discomfort for a few days. If pain or swelling increases, Call Dr Cao * Return to the office for a follow up check up on: JAN 30 at 9 am * office address--[address]. phone # [phone] Pending Studies at Discharge: Yes Studies:: results of the I&D Stand-Alone Forms: My [facility], Smoking Cessation Medications and DC Order Prescriptions: Continued amoxicillin-pot clavulanate 875-125 mg tablet 1 tab PO Q12H Qty: 20 0RF hydrocodone-acetaminophen 5-325 mg tablet 1 tab PO Q4H PRN (Reason: pain) Qty: 10 0RF ondansetron HCl 8 mg tablet 8 mg PO Q8H PRN (Reason: nausea and vomiting) Qty: 10 0RF Held clindamycin HCl 150 mg capsule 150 mg PO QID Hold Instructions: Resume on 01/21/23. Rx Instructions: ORDERED 01/08/23 FOR 7 DAYS, PER PT "STILL TAKING MEDICATION". NOTED SEVERAL MORE CAPSULES IN BOTTLE. Discharge Orders: Discharge Order (Routine); Ordered 01/21/23 Ordered By: Bennie Garces/Other Patient Handouts: ED Dental Abscess, Dental Abscess Facial Cellulitis, ED Tooth Abscess Admission Data Admit Date/Time: 01/20/23 02:56 Attending Provider: Grupo Fournier Admit Provider: Josefina Griffin Primary Care Provider: Suzy Noble Other Providers: Josefina Griffin; Bennie Cao Other Interventions: Discharge Summary Assessment (RN) Last Done: 01/21/23 08:30 Supervising Physician Co-Signing Physician Notes During face to face encounter, I obtained a brief physical examination, discussed hospital stay with patient and discharge instructions with patient. I discussed discharge plan of care with FRED Sun. I reviewed above note and agree with it except for the following: Patient admitted for a periapical abscess, s/p I and D by Dr. Cao. Will discharge on Oral antibiotics Coding Level of Care Code 23410 INP/OBS DISCH >30 MIN Diagnoses Periapical abscess K04.7
== END 2023-01-21 08:45 | disposition home or self-care (01) ==
LOC: 3N 20:09 → ED 20:09 → SUATTDRO 01-20 02:56 → 3N 01-20 03:47